=== PATIENT | male | born 1975 | race Caucasian/White ===

== ENCOUNTER 2017-03-07 15:20 | Emergency (ER) | payer MEDICARE ==
[~2017-03-07 15:20] MED LIST: ALBUTEROL17 GM INH; AMOXICILLIN500 M1 PO; ATARAX PO; CLEOCIN PO; DICLOFENAC PO; ELIMITE60 GM TOP; LEVAQUIN PO; LORTAB 5/500 TA1 TA1 PO; LORTAB 7.5-5001 TAB PO; MEDROL PO; MOBIC PO; NITROGYLCERIN SUBLINGUAL; NO MEDICATIONS; PREDNISONE PO; RITALIN LA20 MG PO; RITALIN PO; TYLENOL #3 PO; ULTRAM PO; VIBRAMYCIN100 M1 PO; VICODIN 5/500 T1 TAB PO; VICODIN PO; VISTARIL PO; ZANTAC; ZITHROMAX1 G/PKT PO; ZOFRAN PO
[2017-03-07 15:40] LABS: INFLUENZA A NEG (NEG); INFLUENZA B NEG (NEG)
[2017-03-11 16:40] LABS: E. CHAFFEENSIS AB IGG <1:64 (<1:64); E. CHAFFEENSIS AB IGM <1:20 (<1:20)
== END 2017-03-07 16:31 | disposition home or self-care (01) ==
LOC: SED 15:20
PROVIDERS: Emergency Medicine
DX: S30.862A Insect bite (nonvenomous) of penis, initial encounter (principal); S80.862A Insect bite (nonvenomous), left lower leg, initial encounter; S80.861A Insect bite (nonvenomous), right lower leg, initial encounter; F31.9 Bipolar disorder, unspecified; F90.9 Attention-deficit hyperactivity disorder, unspecified type; M41.9 Scoliosis, unspecified; F17.210 Nicotine dependence, cigarettes, uncomplicated; Z86.79 Personal history of other diseases of the circulatory system; W57.XXXA Bitten or stung by nonvenomous insect and other nonvenomous arthropods, initial encounter; Y92.9 Unspecified place or not applicable
CPT/HCPCS: 36415; 86617; 86618; 86666; 87804; 99283